=== PATIENT | male | born 1950 | race Caucasian/White ===

== ENCOUNTER 2016-08-30 09:42 | Observation (INO) | payer BC, MEDICARE, OTHER ==
[~2016-08-30] VITALS: Ht 175.3 cm; Wt 83.3 kg
[~2016-08-30 09:42] MED LIST: AVOD0.5C PO; LORTA5 PO; OMEP20TA39 PO
[2016-08-30 09:45] VITALS: BP 124/69; PULSE 98; RESP 16; TEMP 97.6; O2SAT 100
[2016-08-30 10:15] VITALS: BP 123/75; PULSE 81; RESP 22; O2SAT 99
[2016-08-30] MEDS ORDERED: AVOD0.5C PO (10:15)
[2016-08-30] MEDS ORDERED: OMEP20TA PO (10:15)
[2016-08-30] MEDS ORDERED: SODIUM CHLORIDE 0.9% FLUSH 5 ML FLUSH IVF PRN (10:30)
[2016-08-30 10:44] LABS: AUTOMATED NEUTROPHIL # 11.1 TH/MM3 (1.8-7.7); BASOPHIL # 0.1 TH/MM3 (0-0.2); BASOPHIL % 0.6 % (0.0-2.0); EOSINOPHIL % 0.2 % (0.0-4.0); HEMATOCRIT 42.4 % (39.0-51.0); LYMPH % 10.8 % (9.0-44.0); LYMPHOCYTE # 1.5 TH/MM3 (1.0-4.8); MEAN CELL VOLUME 92.5 FL (80.0-100.0); MEAN CORPUSCULAR HEMOGLOBIN 30.4 PG (27.0-34.0); MEAN CORPUSCULAR HGB CONC 32.9 % (32.0-36.0); MONO % 8.4 % (0.0-8.0); PLATELET COUNT 492 TH/MM3 (150-450); RED BLOOD COUNT 4.59 MIL/MM3 (4.50-5.90); RED CELL DISTRIBUTION WIDTH 13.8 % (11.6-17.2); WHITE BLOOD COUNT 13.9 TH/MM3 (4.0-11.0)
[2016-08-30] MEDS ORDERED: SODIUM CHLORID 0.9% 500 ML INJ 500 ML IV ONE (10:45)
[2016-08-30 10:46] LABS: HEMO FLAGS AUTO DIFF
--- NOTE | 2016-08-30 10:47 | PD ---
HPI Chief Complaint: Abnormal Results Time Seen by Provider: 10:23 Travel History International Travel<30 days: No Contact w/Intl Traveler<30days: No Traveled to known affect area: No History of Present Illness HPI 66-year-old male with history of Crohn's disease, status post previous colectomy and currently has an ileostomy, presents to the ER today sent in by Dr. Del Valle who is his primary care physician, had gone to Dr. Del Valle complaining of at least 1 week history of shortness of breath and had lab work done. Dr. Del Valle found that he has significant BUN and creatinine elevations, low sodium, elevated potassium, and sent him in for further evaluation. Patient states that he feels tired, thinks he may be dehydrated. He has had previous history of dehydration secondary to high output ileostomy. He denies any vomiting, fevers, but states he has had some shortness of breath and dyspnea on exertion. He denies any chest pains, fevers, coughing, or other symptoms. He has not noticed any exacerbating or alleviating symptoms. He does not have any black stools or blood in the stools. Modifying Factors: None Associated Signs & Symptoms: Abnormal lab work Risk Factors: Elderly, ileostomy, Crohn's disease PFSH Past Medical History Arthritis: No Asthma: No Autoimmune Disease: No Anxiety: No Depression: No Heart Rhythm Problems: No Cancer: No Cardiovascular Problems: No High Cholesterol: No Chemotherapy: No Chest Pain: No Congestive Heart Failure: No COPD: No Cerebrovascular Accident: No Diabetes: No Endocrine: No Gastrointestinal Disorders: Yes (CROHNS, HX OF GERD) GERD: Yes Genitourinary: Yes (ELEVATED PSA) Hepatitis: No Hiatal Hernia: No Immune Disorder: No Kidney Stones: No Musculoskeletal: No Neurologic: No Psychiatric: No Reproductive: No Respiratory: No Migraines: No Radiation Therapy: No Renal Failure: No Seizures: No Sickle Cell Disease: No Sleep Apnea: No Thyroid Disease: No Ulcer: No Influenza Vaccination: Yes Past Surgical History Abdominal Surgery: Yes (COLECTOMY 1989 AND ILEOSTOMY 1996 WITH REVERSAL) AICD: No Arteriovenous Shunt: No Body Medical Devices: NONE Cardiac Surgery: No Ear Surgery: No Endocrine Surgery: No Eye Surgery: No Genitourinary Surgery: No Gynecologic Surgery: No Insulin Pump: No Joint Replacement: No Oral Surgery: No Pacemaker: No Thoracic Surgery: No Other Surgery: Yes (ILEOSTOMY) Social History Alcohol Use: Yes (OCCAS) Tobacco Use: No Substance Use: No Allergies-Medications (Allergen,Severity, Reaction): Coded Allergies: No Known Allergies (Unverified , 08/30/16) Reported Meds & Prescriptions Reported Meds & Active Scripts Active Reported Omeprazole 20 Mg Tab 20 Mg PO DAILY Avodart (Dutasteride) 0.5 Mg Cap 0.5 Mg PO DAILY Review of Systems Except as stated in HPI: all other systems reviewed are Neg Physical Exam Narrative GENERAL: Well-developed elderly white male patient in no acute distress. Awake and oriented 3. SKIN: Warm and dry. HEAD: Atraumatic. Normocephalic. EYES: Pupils equal and round. No scleral icterus. No injection or drainage. ENT: No nasal bleeding or discharge. Mucous membranes pink and moist. NECK: Trachea midline. No JVD. CARDIOVASCULAR: Regular rate and rhythm. No murmur appreciated. RESPIRATORY: No accessory muscle use. Clear to auscultation. Breath sounds equal bilaterally. GASTROINTESTINAL: Abdomen soft, non-tender, nondistended. Hepatic and splenic margins not palpable. Ileostomy in place draining stool. MUSCULOSKELETAL: No obvious deformities. No clubbing. No cyanosis. No edema. NEUROLOGICAL: Awake and alert. No obvious cranial nerve deficits. Motor grossly within normal limits. Normal speech. PSYCHIATRIC: Appropriate mood and affect; insight and judgment normal. Data Data Last Documented VS Vital Signs Date Time Temp Pulse Resp B/P Pulse Ox O2 Delivery O2 Flow Rate FiO2 08/30/16 10:15 81 22 123/75 99 Room Air 08/30/16 09:45 97.6 Orders Electrocardiogram (08/30/16 10:09) Complete Blood Count With Diff (08/30/16 10:23) Comprehensive Metabolic Panel (08/30/16 10:23) B-Type Natriuretic Peptide (08/30/16 10:23) Iv Access Insert/Monitor (08/30/16 10:23) Ecg Monitoring (08/30/16 10:23) Oximetry (08/30/16 10:23) Oxygen Administration (08/30/16 10:23) Chest, Single Ap (08/30/16 10:23) Sodium Chloride 0.9% Flush (Ns Flush) (08/30/16 10:30) Sodium Chlorid 0.9% 500 Ml Inj (Ns 500 M (08/30/16 10:45) Labs Laboratory Tests Test 08/30/16 10:25 White Blood Count 13.9 TH/MM3 Red Blood Count 4.59 MIL/MM3 Hemoglobin 14.0 GM/DL Hematocrit 42.4 % Mean Corpuscular Volume 92.5 FL Mean Corpuscular Hemoglobin 30.4 PG Mean Corpuscular Hemoglobin 32.9 % Concent Red Cell Distribution Width 13.8 % Platelet Count 492 TH/MM3 Mean Platelet Volume 6.6 FL Neutrophils (%) (Auto) 80.0 % Lymphocytes (%) (Auto) 10.8 % Monocytes (%) (Auto) 8.4 % Eosinophils (%) (Auto) 0.2 % Basophils (%) (Auto) 0.6 % Neutrophils # (Auto) 11.1 TH/MM3 Lymphocytes # (Auto) 1.5 TH/MM3 Monocytes # (Auto) 1.2 TH/MM3 Eosinophils # (Auto) 0.0 TH/MM3 Basophils # (Auto) 0.1 TH/MM3 CBC Comment AUTO DIFF Differential Total Cells 100 Counted Neutrophils % (Manual) 63 % Band Neutrophils % 12 % Lymphocytes % 14 % Monocytes % 9 % Basophils % 1 % Neutrophils # (Manual) 10.6 TH/MM3 Metamyelocytes 1 % Differential Comment FINAL DIFF MANUAL Platelet Estimate HIGH Platelet Morphology Comment NORMAL Red Cell Morphology Comment NORMAL Sodium Level 130 MEQ/L Potassium Level 5.1 MEQ/L Chloride Level 98 MEQ/L Carbon Dioxide Level 20.9 MEQ/L Anion Gap 11 MEQ/L Blood Urea Nitrogen 28 MG/DL Creatinine 1.91 MG/DL Estimat Glomerular Filtration 35 ML/MIN Rate Random Glucose 109 MG/DL Calcium Level 9.4 MG/DL Total Bilirubin 0.3 MG/DL Aspartate Amino Transf 26 U/L (AST/SGOT) Alanine Aminotransferase 36 U/L (ALT/SGPT) Alkaline Phosphatase 141 U/L B-Type Natriuretic Peptide 7 PG/ML Total Protein 8.6 GM/DL Albumin 3.5 GM/DL [facility] Medical Decision Making Medical Screen Exam Complete: Yes Emergency Medical Condition: Yes Medical Record Reviewed: Yes Interpretation(s) EKG shows NSR, no ST elevation or depression, and no arrhythmias. No significant T-wave inversions. Laboratory Tests Test 08/30/16 10:25 White Blood Count 13.9 TH/MM3 (4.0-11.0) Platelet Count 492 TH/MM3 (150-450) Mean Platelet Volume 6.6 FL (7.0-11.0) Neutrophils (%) (Auto) 80.0 % (16.0-70.0) Monocytes (%) (Auto) 8.4 % (0.0-8.0) Neutrophils # (Auto) 11.1 TH/MM3 (1.8-7.7) Monocytes # (Auto) 1.2 TH/MM3 (0-0.9) Sodium Level 130 MEQ/L (136-145) Carbon Dioxide Level 20.9 MEQ/L (21.0-32.0) Blood Urea Nitrogen 28 MG/DL (7-18) Creatinine 1.91 MG/DL (0.60-1.30) Estimat Glomerular Filtration 35 ML/MIN (>89) Rate Random Glucose 109 MG/DL (74-106) Alkaline Phosphatase 141 U/L (45-117) Total Protein 8.6 GM/DL (6.4-8.2) Last 24 hours Impressions Chest X-Ray 08/30/16 1023 Signed Impressions: Service Date/Time: August 10:46 - CONCLUSION: Evidence of prior granulomatous exposure. Ethan Grover MD Differential Diagnosis Dehydration versus metabolic issues versus acute renal failure versus CHF versus sepsis Narrative Course Patient is afebrile. He has not been vomiting. However, lab work does show significant signs of worsening renal function and a lateral light abnormalities. IV fluids was given in the ER. At this point, my plan would be to admit the patient for further treatment and reevaluation of renal function. Case had been discussed with Dr. Del Valle office. Case is discussed with Dr. Urbina for admission. Diagnosis Primary Impression: Acute renal failure Admitting Information Admitting Physician Requests: Admit Rashawn Kerr MD Aug 30, 2016 10:47
[2016-08-30 11:01] LABS: ANION GAP 11 MEQ/L (5-15); AST (GOT) 26 U/L (15-37); BICARBONATE 20.9 MEQ/L (21.0-32.0); BLOOD UREA NITROGEN 28 MG/DL (7-18); CHLORIDE 98 MEQ/L (98-107); GLOMERULAR FILTRATION RATE 35 ML/MIN (>89); POTASSIUM 5.1 MEQ/L (3.5-5.1); SODIUM (NA) 130 MEQ/L (136-145)
[2016-08-30 11:04] LABS: ALKALINE PHOSPHATASE 141 U/L (45-117); ALT (GPT) 36 U/L (12-78); TOTAL BILIRUBIN ADULT 0.3 MG/DL (0.2-1.0)
--- NOTE | 2016-08-30 11:17 | RADRPT ---
EXAM DATE/TIME: 08/30/2016 10:46 [facility] COMPARISON: No previous studies available for comparison. INDICATIONS : Patient has been short of breath for a week and a half. MEDICAL HISTORY : None. SURGICAL HISTORY : None. ENCOUNTER: Initial ACUITY: 1 day PAIN SCORE: 0/10 LOCATION: Bilateral chest FINDINGS: The heart size is normal. There are calcified granulomas in the left upper lung and calcified lymph n odes in the left hilum. There is a possible calcified granuloma in the medial right base. Lungs are o therwise clear. No effusion is seen. CONCLUSION: Evidence of prior granulomatous exposure. Ethan Grover MD on August 30, 2016 at 11:14 Board Certified Radiologist. This report was verified electronically.
[2016-08-30 11:32] LABS: BANDS 12 % (0-6); BASOPHILS 1 % (0-2); METAMYELOCYTES 1 % (0-1); NEUTROPHIL # MANUAL DIFF 10.6 TH/MM3 (1.8-7.7); PLATELET ESTIMATE SMEAR HIGH (NORMAL); PLATELET MORPHOLOGY NORMAL (NORMAL); POLYS (SEG NEUTROPHILS) 63 % (16-70); SCAN/DIFF FINAL DIFF MANUAL; WBC DIFF SAMPLE 100
[2016-08-30] MEDS ORDERED: TEMAZEPAM 15 MG CAP PO PRN (12:45)
[2016-08-30] MEDS ORDERED: NALOXONE HCL 0.4 MG/ML AMP IV PRN (12:45)
[2016-08-30] MEDS ORDERED: ONDANSETRON HCL 4 MG/2 ML VIAL IVP PRN (12:45)
[2016-08-30] MEDS ORDERED: SODIUM CHLORIDE 0.9% FLUSH 5 ML FLUSH FLUSH PRN (12:45)
[2016-08-30] MEDS ORDERED: ACETAMINOPHEN 325 MG TAB PO PRN ×2 (12:45)
--- NOTE | 2016-08-30 13:43 | EKG ---
Date Performed: 08/30/2016 Time Performed: 10:13:54 PTAGE: 66 years EKG: Sinus rhythm NORMAL ECG PREVIOUS TRACING : 01/27/2015 09.09 DOCTOR: Jose Ayala Interpretating Date/Time 08/30/2016 13:42:01
[2016-08-30] MEDS: SODIUM CHLOR 0.9% 1000 ML INJ 1,000 ML IV SCH ×2 (13:47→22:28)
[2016-08-30 13:48] VITALS: BP 117/76; PULSE 81; RESP 17; O2SAT 98
--- NOTE | 2016-08-30 13:49 | HHI.HP ---
[facility] Service [facility] Primary Care Physician Yoana Del Valle MD Admission Diagnosis electrolyte abnormality/dehydration Diagnoses: (1) Acute renal failure (2) Hyponatremia (3) BPH (benign prostatic hypertrophy) (4) Leukocytosis (5) GERD (gastroesophageal reflux disease) Chief Complaint: Abnormal labs, leg cramps Travel History International Travel<30 Days: No Contact w/Intl Traveler <30 Da: No Traveled to Known Affected Are: No History of Present Illness 66 year-old male with a history of BPH, Crohn's disease with status post ileostomy 2013 was sent to the ED after receiving a call from his primary care physician for evaluation of abnormal labs including worsening renal function. Apparently, patient has seen his PCP secondary to complaint of one- week history of shortness of breath and bilateral leg cramps. A BMP was ordered and revealed BUN/creatinine 27/1.92 with sodium of 127. Patient also reported increase in ileostomy output however denies any gastroenteritis symptoms like. Patient came, he has been under a lot of stress secondary to work. He denies any upper respiratory symptoms. Patient reports similar episodes for which she was treated for dehydration few years back Review of Systems Other 12 systems reviewed and are negative except for the one mentioned in history of present illness Past Family Social History Past Medical History Crohn disease GERD Past Surgical History COLECTOMY 1989 AND ILEOSTOMY 1996 WITH REVERSAL Ileostomy 2013 Reported Medications Omeprazole 20 Mg Tab 20 Mg PO DAILY Avodart (Dutasteride) 0.5 Mg Cap 0.5 Mg PO DAILY Allergies: Coded Allergies: No Known Allergies (Unverified , 08/30/16) Family History Mother may have had Crohn disease/IBD Father side with history of colon cancer Social History Alcohol Use: Yes (OCCAS) Tobacco Use: No Substance Use: No Physical Exam Vital Signs Vital Signs Date Time Temp Pulse Resp B/P Pulse Ox O2 Delivery O2 Flow Rate FiO2 08/30/16 10:15 81 22 123/75 99 Room Air 08/30/16 09:45 97.6 98 16 124/69 100 Room Air Physical Exam GENERAL: This is a well-nourished, well-developed patient, in no apparent distress. SKIN: No rashes, ecchymoses or lesions. Cool and dry. HEAD: Atraumatic. Normocephalic. No temporal or scalp tenderness. EYES: Pupils equal round and reactive. Extraocular motions intact. No scleral icterus. No injection or drainage. ENT: Nose without bleeding, purulent drainage or septal hematoma. Throat without erythema, tonsillar hypertrophy or exudate. Uvula midline. Airway patent. NECK: Trachea midline. No JVD or lymphadenopathy. Supple, nontender, no meningeal signs. CARDIOVASCULAR: Regular rate and rhythm without murmurs, gallops, or rubs. RESPIRATORY: Clear to auscultation. Breath sounds equal bilaterally. No wheezes , rales, or rhonchi. GASTROINTESTINAL: Abdomen soft, non-tender, nondistended. No hepato-splenomegaly , or palpable masses. No guarding. Ileostomy in place however but empty MUSCULOSKELETAL: Extremities without clubbing, cyanosis, or edema. No joint tenderness, effusion, or edema noted. No calf tenderness. Negative Homans sign bilaterally. NEUROLOGICAL: Awake and alert. Cranial nerves II through XII intact. Motor and sensory grossly within normal limits. Five out of 5 muscle strength in all muscle groups. Normal speech. Laboratory Laboratory Tests Test 08/30/16 10:25 White Blood Count 13.9 Red Blood Count 4.59 Hemoglobin 14.0 Hematocrit 42.4 Mean Corpuscular Volume 92.5 Mean Corpuscular Hemoglobin 30.4 Mean Corpuscular Hemoglobin 32.9 Concent Red Cell Distribution Width 13.8 Platelet Count 492 Mean Platelet Volume 6.6 Neutrophils (%) (Auto) 80.0 Lymphocytes (%) (Auto) 10.8 Monocytes (%) (Auto) 8.4 Eosinophils (%) (Auto) 0.2 Basophils (%) (Auto) 0.6 Neutrophils # (Auto) 11.1 Lymphocytes # (Auto) 1.5 Monocytes # (Auto) 1.2 Eosinophils # (Auto) 0.0 Basophils # (Auto) 0.1 CBC Comment AUTO DIFF Differential Total Cells 100 Counted Neutrophils % (Manual) 63 Band Neutrophils % 12 Lymphocytes % 14 Monocytes % 9 Basophils % 1 Neutrophils # (Manual) 10.6 Metamyelocytes 1 Differential Comment FINAL DIFF MANUAL Platelet Estimate HIGH Platelet Morphology Comment NORMAL Red Cell Morphology Comment NORMAL Sodium Level 130 Potassium Level 5.1 Chloride Level 98 Carbon Dioxide Level 20.9 Anion Gap 11 Blood Urea Nitrogen 28 Creatinine 1.91 Estimat Glomerular Filtration 35 Rate Random Glucose 109 Calcium Level 9.4 Total Bilirubin 0.3 Aspartate Amino Transf 26 (AST/SGOT) Alanine Aminotransferase 36 (ALT/SGPT) Alkaline Phosphatase 141 B-Type Natriuretic Peptide 7 Total Protein 8.6 Albumin 3.5 Result Diagram: 08/30/16 1025 08/30/16 1025 Imaging Last Impressions Chest X-Ray 08/30/16 1023 Signed Impressions: Service Date/Time: August 10:46 - CONCLUSION: Evidence of prior granulomatous exposure. Ethan Grover MD Assessment and Plan Problem List: (1) Acute renal failure ICD Code: N17.9 Status: Acute Assessment and Plan 66-year-old man with 1-Acute renal failure: Secondary to dehydration patient with high output ileostomy ; status post and S borders 500 cc 1 in ED, start gentle IV fluid hydration. Monitor BUN and creatinine and avoid all nephrotoxic drugs 2-Mild hyponatremia: Continue with IV fluid hydration and monitor electrolytes 3-Leukocytosis: Likely reactive, chest x-ray unremarkable, check UA 4-BPH: Resume Avodart 5-GERD: Resume outpatient medication Code Status Full code Discussed Condition With Patient, , ED physician Que Urbina MD Aug 30, 2016 13:49
[2016-08-30] MEDS ORDERED: RESP: ALBUTEROL 2.5 MG/IPRATROPIUM 0.5 MG NEB (PRN) NEB (14:00)
[2016-08-30] MEDS ORDERED: hydrALAZINE HCL 25 MG TAB PO PRN (14:00)
[2016-08-30 14:26] VITALS: BP 135/68; PULSE 73; RESP 16; TEMP 96.3; O2SAT 95
[2016-08-30 17:05] VITALS: PULSE 82
[2016-08-30 20:00] VITALS: BP 121/67; PULSE 83; RESP 18; TEMP 97.4; O2SAT 98
[2016-08-30] MEDS: SODIUM CHLORIDE 0.9% FLUSH 5 ML FLUSH FLUSH SCH (21:00)
[2016-08-31] VITALS: BP 91/52; PULSE 81; RESP 16; TEMP 97.8; O2SAT 97
[2016-08-31 04:00] VITALS: BP 105/58; PULSE 80; RESP 16; TEMP 97.8; O2SAT 98
[2016-08-31 05:46] LABS: AUTOMATED NEUTROPHIL # 9.9 TH/MM3 (1.8-7.7); BASOPHIL # 0.1 TH/MM3 (0-0.2); BASOPHIL % 0.6 % (0.0-2.0); EOSINOPHIL # 0.1 TH/MM3 (0-0.4); EOSINOPHIL % 0.7 % (0.0-4.0); HEMATOCRIT 35.1 % (39.0-51.0); LYMPH % 15.3 % (9.0-44.0); MEAN CELL VOLUME 91.8 FL (80.0-100.0); MEAN CORPUSCULAR HGB CONC 32.7 % (32.0-36.0); MONO % 7.6 % (0.0-8.0); NEUT % 75.8 % (16.0-70.0); PLATELET COUNT 434 TH/MM3 (150-450); RED BLOOD COUNT 3.82 MIL/MM3 (4.50-5.90); RED CELL DISTRIBUTION WIDTH 13.9 % (11.6-17.2); WHITE BLOOD COUNT 13.1 TH/MM3 (4.0-11.0)
[2016-08-31 05:54] LABS: HEMO FLAGS AUTO DIFF
[2016-08-31 06:17] LABS: ALKALINE PHOSPHATASE 124 U/L (45-117); ALT (GPT) 26 U/L (12-78); ANION GAP 9 MEQ/L (5-15); AST (GOT) 17 U/L (15-37); BICARBONATE 24.4 MEQ/L (21.0-32.0); BLOOD UREA NITROGEN 22 MG/DL (7-18); CHLORIDE 103 MEQ/L (98-107); GLOMERULAR FILTRATION RATE 57 ML/MIN (>89); POTASSIUM 4.3 MEQ/L (3.5-5.1); SODIUM (NA) 136 MEQ/L (136-145); TOTAL BILIRUBIN ADULT 0.1 MG/DL (0.2-1.0)
[2016-08-31] MEDS: SODIUM CHLOR 0.9% 1000 ML INJ 1,000 ML IV SCH (06:33)
[2016-08-31 07:00] VITALS: PULSE 78
[2016-08-31 07:18] LABS: BANDS 4 % (0-6); METAMYELOCYTES 1 % (0-1); MYELOCYTES 1 % (0-0); NEUTROPHIL # MANUAL DIFF 10.5 TH/MM3 (1.8-7.7); PLATELET ESTIMATE SMEAR NORMAL (NORMAL); PLATELET MORPHOLOGY NORMAL (NORMAL); POLYS (SEG NEUTROPHILS) 74 % (16-70); SCAN/DIFF FINAL DIFF MANUAL; WBC DIFF SAMPLE 100
[2016-08-31 08:01] VITALS: BP 95/64; PULSE 84; RESP 20; TEMP 97.8; O2SAT 94
[2016-08-31] MEDS: SODIUM CHLORIDE 0.9% FLUSH 5 ML FLUSH FLUSH SCH (08:57)
[2016-08-31] MEDS ORDERED: FINASTERIDE 5 MG TAB PO SCH (09:00)
[2016-08-31] MEDS ORDERED: PNEUMOCOCCAL POLYVALENT INJ 25 MCG/0.5 ML SYR IM ONE (09:00)
[2016-08-31] MEDS ORDERED: PANTOPRAZOLE SOD 20 MG DELAYED RELEASE TAB PO SCH (09:00)
[2016-08-31] MEDS ORDERED: INFLUENZA VIRUS VACCINE (QUADRIVALENT) 0.5 ML SYR IM ONE ×2 (10:00)
--- NOTE | 2016-08-31 10:05 | HHI.PR ---
Subjective Remarks Follow-up acute renal failure 08/31/16-patient seen and examined, reports significant improvements of malaise and generalized weakness. Reported decreased ileostomy output overnight which according to patient much better. Vitals stable. Improving renal indices. Objective Vitals Vital Signs Date Time Temp Pulse Resp B/P Pulse Ox O2 Delivery O2 Flow Rate FiO2 08/31/16 08:01 97.8 84 20 95/64 94 08/31/16 07:00 78 08/31/16 07:00 Room Air 08/31/16 04:00 Room Air 08/31/16 04:00 97.8 80 16 105/58 98 08/31/16 00:00 97.8 81 16 91/52 97 08/31/16 00:00 Room Air 08/30/16 20:00 97.4 83 18 121/67 98 08/30/16 20:00 83 08/30/16 20:00 Room Air 08/30/16 17:05 82 08/30/16 14:26 96.3 73 16 135/68 95 08/30/16 13:48 81 17 117/76 98 Room Air 08/30/16 10:15 81 22 123/75 99 Room Air I/O 08/30/16 08/30/16 08/30/16 08/31/16 08/31/16 08/31/16 07:00 15:00 23:00 07:00 15:00 23:00 Intake Total 1139 ml 1236 ml Balance 1139 ml 1236 ml Intake Oral 240 ml 240 ml IV Total 899 ml 996 ml # Voids 3 2 # Bowel Movements 0 0 Result Diagram: 08/31/16 0510 08/31/16 0510 Imaging Last Impressions Chest X-Ray 08/30/16 1023 Signed Impressions: Service Date/Time: August 10:46 - CONCLUSION: Evidence of prior granulomatous exposure. Ethan Grover MD Objective Remarks GENERAL: NAD SKIN: Warm and dry. HEAD: Normocephalic. EYES: No scleral icterus. No injection or drainage. NECK: Supple, trachea midline. No JVD or lymphadenopathy. CARDIOVASCULAR: Regular rate and rhythm without murmurs, gallops, or rubs. RESPIRATORY: Breath sounds equal bilaterally. No accessory muscle use. GASTROINTESTINAL: Abdomen soft, non-tender, nondistended. Ileostomy in place MUSCULOSKELETAL: No cyanosis, or edema. BACK: Nontender without obvious deformity. No CVA tenderness. A/P Problem List: (1) Acute renal failure ICD Code: N17.9 Status: Resolved (2) Hyponatremia ICD Code: E87.1 Status: Resolved (3) BPH (benign prostatic hypertrophy) ICD Code: N40.0 Status: Chronic (4) Leukocytosis ICD Code: D72.829 Status: Acute (5) GERD (gastroesophageal reflux disease) ICD Code: K21.9 Status: Chronic Assessment and Plan 66-year-old man with 1-Acute renal failure: Resolved. Secondary to dehydration patient with high output ileostomy ; status post NS bolus 500 cc 1 in ED, renal indices Bun/Cr 22/1.27 today ; improved since admission with IV fluid hydration. 2-Mild hyponatremia: Resolved with IV fluid hydration and monitor electrolytes 3-Leukocytosis: Improving; Likely reactive, chest x-ray unremarkable, 4-BPH: on Avodart 5-GERD: Continue outpatient medication Discharge Planning Discharge patient to home Condition on discharge: Improved Regular Diet as tolerated Ad Viky activity Rx written:none Follow-up with primary care physician in 1 week Que Urbina MD Aug 31, 2016 10:05
== END 2016-08-31 12:38 | disposition home or self-care (01) ==
LOC: NEPC 09:42 → NEDA 11:56 → N04A 16:32
PROVIDERS: ADMIT Hospitalist; ATTEND Hospitalist
DX: N17.9 Acute kidney failure, unspecified (principal); E86.0 Dehydration; E87.1 Hypo-osmolality and hyponatremia; D72.829 Elevated white blood cell count, unspecified; K94.19 Other complications of enterostomy; Z23 Encounter for immunization; N40.0 Benign prostatic hyperplasia without lower urinary tract symptoms; K21.9 Gastro-esophageal reflux disease without esophagitis; K50.90 Crohn's disease, unspecified, without complications; Y83.3 Surgical operation with formation of external stoma as the cause of abnormal reaction of the patient, or of later complication, without mention of misadventure at the time of the procedure
CPT/HCPCS: 71010; 80053; 83880; 85007; 85027; 90732; 93005; 97163; 99285; G0009; G0378; G8987; G8988; J7030; J7040; 90471